=== PATIENT | female | born 1955 | race Hispanic/Latino ===

== ENCOUNTER 2018-05-19 09:30 | Emergency (ER) | payer BC ==
[2018-05-19 09:34] VITALS: BMI 22.9
[2018-05-19 09:36] VITALS: TEMP 97.8
--- NOTE | 2018-05-19 10:19 | ED PDOC ---
Upper Extremity Pain/Injury Time Seen by Provider: 05/19/18 09:41 Chief Complaint (Nursing): Upper Extremity Problem/Injury Chief Complaint (Provider): Left hand swelling History Per: Patient History/Exam Limitations: no limitations Onset/Duration Of Symptoms: Hrs Current Symptoms Are (Timing): Still Present Additional Complaint(s): 63 year old female presents to the ER for an evaluation of her left hand swelling onset last night. Patient reports she tripped and fell on her left side from the edge of a side-walk landing on her knees and then her hands. She states she is able to move and bend her arms but she is unable to flap her left hand up or down. After she got up, she picked out the rocks stuck onto her hand and she noticed her left hand was swollen. She kept her hand straight while sleeping last night. Also reports she is at fall risk and cannot walk for long time without help from her . She states she has neurological problem and her eyes clamp shut and she cannot open them. Patient denies any other complaints. PMD: Non [facility] Provider Past Medical History Reviewed: Historical Data, Nursing Documentation, Vital Signs Vital Signs: Last Vital Signs Temp 97.8 F 05/19/18 09:35 Pulse 110 H 05/19/18 09:35 Resp 18 05/19/18 09:35 BP 120/75 05/19/18 09:35 Pulse Ox 97 05/19/18 09:35 - Medical History Other PMH: thyroid - Surgical History Other surgeries: facial muscle removal - Family History Family History: States: Unknown Family Hx - Social History Current smoker - smoking cessation education provided: No Alcohol: None Drugs: Denies - Home Medications Home Medications: Ambulatory Orders Medication Instructions Recorded Famotidine [Pepcid] 20 mg PO BID #28 tab 03/03/16 Ketorolac Tromethamine [Toradol] 10 mg PO Q6H PRN #19 tab 03/03/16 Ondansetron [Zofran] 4 mg PO Q8H #9 tab 03/03/16 Tamsulosin [Flomax] 0.4 mg PO DAILY #21 cap 03/03/16 - Allergies Allergies/Adverse Reactions: Allergies Allergy/AdvReac Type Severity Reaction Status Date / Time propoxyphene HCl Allergy SHORTNESS Verified 03/03/16 07:27 [From Isidro] OF BREATH Review of Systems ROS Statement: Except As Marked, All Systems Reviewed And Found Negative Musculoskeletal: Positive for: Hand Pain (left) Psych: Negative for: Suicidal ideation (homicidal ideation ) Physical Exam - Reviewed Nursing Documentation Reviewed: Yes Vital Signs Reviewed: Yes - Physical Exam Appears: Positive for: Non-toxic, No Acute Distress Head Exam: Positive for: ATRAUMATIC, NORMAL INSPECTION, NORMOCEPHALIC Skin: Positive for: Normal Color, Warm, Dry Extremity: Positive for: Normal ROM, Tenderness (tenderness to palpation on metacarpals), Swelling (left hand), Other (normal sensation ). Negative for: Deformity Neurologic/Psych: Positive for: Alert, Oriented (x3). Negative for: Motor/Sensory Deficits - ECG O2 Sat by Pulse Oximetry: 97 (RA) Pulse Ox Interpretation: Normal Medical Decision Making Medical Decision Making: Time: 956 Initial Impression: left hand swelling Initial Plan: --Hand Left 3 Views [RAD] --Wrist, Left 3 Views [RAD] --Reevaluation Scribe Attestation: Documented by Elissa Stone, acting as a scribe for Elisabeth Thompson MD Provider Scribe Attestation: All medical record entries made by the Scribe were at my direction and personally dictated by me. I have reviewed the chart and agree that the record accurately reflects my personal performance of the history, physical exam, medical decision making, and the department course for this patient. I have also personally directed, reviewed, and agree with the discharge instructions and disposition. Disposition - Clinical Impression Clinical Impression: Closed fracture of hand - Patient ED Disposition Is Patient to be Admitted: No Doctor Will See Patient In The: Office Counseled Patient/Family Regarding: Diagnosis, Need For Followup - Disposition Referrals: Aden Erickson III, MD [Staff Provider] - Disposition: Routine/Home Disposition Time: 11:30 Condition: STABLE Instructions: Hand Fracture Forms: [facility] ([place]) - POA Present On Arrival: Falls Or Trauma
--- NOTE | 2018-05-19 11:49 | RAD ---
PROCEDURE: Left Hand Radiographs. HISTORY: trip and fall yesterday night COMPARISON: None. FINDINGS: BONES: Is osteopenia suggests osteoporosis. There is a likely articular fracture at the base of the 5th met[address] bone[address] can be performed for greater characterization if needed. No subluxation or dislocation. No destructive bony lesion appreciated throughout the left hand. Degenerative joint space narrowing seen throughout the interphalangeal joints diffusely as well as the carpometacarpal articulations compatible with degenerative joint disease. This is particularly advanced at the basal joint where there is also prominent articular cortical sclerosis. JOINTS: No subluxation or dislocation. SOFT TISSUES: Normal. OTHER FINDINGS: None. IMPRESSION: Likely fracture through the base of the 5th metacarpal bone, nondisplaced and articular. No dislocation or subluxation. Degenerative changes as discussed above.
--- NOTE | 2018-05-19 11:50 | RAD ---
Date of service: 05/19/2018 PROCEDURE: Left Wrist Radiographs. HISTORY: fall yesterday night COMPARISON: None. FINDINGS: BONES: No acute fracture or destructive bony lesion identified of the carpal bones. However, there is an oblique fracture through the radial side of the base of the 5th metacarpal bone which is likely articular. CT can be utilized for greater characterization. Diffuse osteopenia suggests osteoporosis. JOINTS: Degenerative joint space narrowing and cortical sclerosis appreciate throughout the carpal metacarpal articulations diffusely, a, but particularly at the basal joint. SOFT TISSUES: Normal. OTHER FINDINGS: None. IMPRESSION: No carpal bone fracture or dislocation. An oblique fracture through the radial base of the proximal 5th metacarpal bone is suggested. Please see discussion above. Diffuse osteopenia suggests osteoporosis.
[2018-05-19 12:04] VITALS: BP 127/78; PULSE 89; RESP 19; O2SAT 100
== END 2018-05-19 11:59 | disposition home or self-care (01) ==
LOC: H.ER 09:30
DX: S69.92XA Unspecified injury of left wrist, hand and finger(s), initial encounter (principal); W01.0XXA Fall on same level from slipping, tripping and stumbling without subsequent striking against object, initial encounter; Y92.89 Other specified places as the place of occurrence of the external cause